=== PATIENT | male | born 1990 | race Caucasian/White ===

== ENCOUNTER 2018-06-01 00:08 | Emergency (ER) | payer BC ==
[2018-06-01 00:12] VITALS: BP 128/91
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
[2018-06-01] MEDS ORDERED: ACETAMINOPHEN 500 MG TAB PO ONE (00:37)
== END 2018-06-01 00:45 | disposition home or self-care (01) ==
PROC: 0HQ1XZZ Repair Face Skin, External Approach (ICD-10-PCS; principal; 2018-06-01)
DX: S01.81XA Laceration without foreign body of other part of head, initial encounter (principal); F10.920 Alcohol use, unspecified with intoxication, uncomplicated; F17.200 Nicotine dependence, unspecified, uncomplicated; W22.8XXA Striking against or struck by other objects, initial encounter; Y92.9 Unspecified place or not applicable; Y93.9 Activity, unspecified; Y99.9 Unspecified external cause status

== ENCOUNTER 2018-08-27 16:25 | Observation (INO) | payer BC, OTHER ==
--- NOTE | 2018-08-27 17:12 | EDPHY ---
H & P Time Seen by Provider: 08/27/18 17:11 HPI/ROS: CHIEF COMPLAINT: Nausea vomiting diarrhea HISTORY OF PRESENT ILLNESS: Patient went to go see the movie "[place] [employer]" last night at 5:30 p.m. And only about 30 min into the movie started having nausea so he left and has had nausea vomiting and diarrhea all night and then all day since then. Associated with cramping in his abdomen and some pain in the center of his chest below the sternum. Symptoms worse with oral intake, severe at this time. Associated with some dark vomit but no melena or red blood per rectum, no hematemesis. REVIEW OF SYSTEMS: Eye: no change in vision ENT: no sore throat Cardiac: no chest pain or syncope Pulmonary: no cough or SOB Abdomen: HPI Musculoskeletal: no back pain Skin: no rash Neuro: no headache Constitutional: no fever : no urinary symptoms A comprehensive 10 point review of systems is otherwise negative aside from elements mentioned in the history of present illness. PAST MEDICAL HISTORY: Right leg surgery for fracture when he lived in [place] Social history: Tobacco smoker, some alcohol. General Appearance: Alert and conversant, cooperative. Eyes: No scleral icterus. ENT, Mouth: Dry mucous membranes. Respiratory: Normal respiratory effort, breath sounds equal, lungs are clear to auscultation. Cardiovascular: Regular rate and rhythm. Gastrointestinal: Abdomen is soft and non tender. Negative McBurney's point tenderness, no Aceves sign, no rebound or guarding, normal male . Neurological: Alert, face symmetric, normal motor and sensory in extremities. Skin: Warm and dry, no rashes. Musculoskeletal: No peripheral edema. Psychiatric: Not agitated. Emergency Department course/MDM: Zofran 4 and Phenergan 12.5, normal saline hydration 2 L, labs to include CBC chemistry LFT and lipase. 1841: Labs reviewed including elevated WBC and acute kidney injury, discussed with patient admission for IV fluids, discussed with Dr. Brown. Likely severe gastroenteritis, I think that acute surgical abdominal process unlikely on clinical exam. Smoking Status: Current every day smoker Constitutional: Initial Vital Signs Temperature (C) 36.8 C 08/27/18 16:32 Heart Rate 136 H 08/27/18 16:32 Respiratory Rate 18 08/27/18 16:32 Blood Pressure 132/95 H 08/27/18 16:32 O2 Sat (%) 98 03/18/19 16:32 O2 Delivery Mode Room Air Allergies/Adverse Reactions: amoxicillin [Amoxicillin] Allergy (Severe, Verified 08/27/18 16:31) Hives Home Medications: Medication Instructions Recorded Acetaminophen [Tylenol ES 500 mg 500 - 1,000 mg PO DAILY PRN 08/27/18 (*)] Amphet Asp and D/Amphet [Adderall 20 mg PO DAILY@17 PRN 08/27/18 20 mg (*)] Dextroamphetamine/Amphetamine 60 mg PO DAILY PRN 08/27/18 [Adderall Xr 30 mg Capsule] Ibuprofen [Motrin (*)] 200 - 400 mg PO DAILY PRN 08/27/18 Medical Decision Making Differential Diagnosis: Differential considered including but not limited to gastroenteritis, food poisoning, metabolic abnormality, appendicitis, bowel obstruction. - Data Points Laboratory Results: Laboratory Results 08/27/18 17:50 08/27/18 17:50 08/27/18 08/27/18 17:50 17:50 WBC 27.59 10^3/uL H 10^3/uL (3.80-9.50) RBC 6.29 10^6/uL 10^6/uL (4.40-6.38) Hgb 19.8 g/dL H g/dL (13.7-17.5) Hct 54.6 % H % (40.0-51.0) MCV 86.8 fL fL (81.5-99.8) MCH 31.5 pg pg (27.9-34.1) MCHC 36.3 g/dL g/dL (32.4-36.7) RDW 12.2 % % (11.5-15.2) Plt Count 520 10^3/uL H 10^3/uL (150-400) MPV 10.2 fL fL (8.7-11.7) Neut % (Auto) 88.8 % H % (39.3-74.2) Lymph % (Auto) 3.0 % L % (15.0-45.0) Stokes % (Auto) 7.1 % % (4.5-13.0) Eos % (Auto) 0.0 % L % (0.6-7.6) Baso % (Auto) 0.3 % % (0.3-1.7) Nucleat RBC Rel Count 0.0 % % (0.0-0.2) Absolute Neuts (auto) 24.52 10^3/uL H 10^3/uL (1.70-6.50) Absolute Lymphs (auto) 0.83 10^3/uL L 10^3/uL (1.00-3.00) Absolute Monos (auto) 1.95 10^3/uL H 10^3/uL (0.30-0.80) Absolute Eos (auto) 0.00 10^3/uL L 10^3/uL (0.03-0.40) Absolute Basos (auto) 0.08 10^3/uL 10^3/uL (0.02-0.10) Absolute Nucleated RBC 0.00 10^3/uL 10^3/uL (0-0.01) Immature Gran % 0.8 % % (0.0-1.1) Immature Gran # 0.21 10^3/uL H 10^3/uL (0.00-0.10) RBC/WBC/PLT Morphology TNP Platelet Estimate TNP Sodium 133 mEq/L L mEq/L (135-145) Potassium 4.7 mEq/L mEq/L (3.5-5.2) Chloride 91 mEq/L L mEq/L (97-110) Carbon Dioxide 14 mEq/l L mEq/l (22-31) Anion Gap 28 mEq/L H mEq/L (6-14) BUN 37 mg/dL H mg/dL (7-23) Creatinine 1.9 mg/dL H mg/dL (0.7-1.3) Estimated GFR 42 Glucose 125 mg/dL H mg/dL (70-100) Calcium 11.1 mg/dL H mg/dL (8.5-10.4) Phosphorus 5.2 mg/dL H mg/dL (2.5-4.5) Total Bilirubin 1.6 mg/dL H mg/dL (0.1-1.4) Conjugated Bilirubin 0.5 mg/dL mg/dL (0.0-0.5) Unconjugated Bilirubin 1.1 mg/dL mg/dL (0.0-1.1) AST 60 IU/L H IU/L (17-59) ALT 50 IU/L IU/L (21-72) Alkaline Phosphatase 117 IU/L IU/L (38-126) Total Protein 9.9 g/dL H g/dL (6.3-8.2) Albumin 5.4 g/dL H g/dL (3.5-5.0) Lipase 523 IU/L H IU/L (23-300) Medications Given: Hydromorphone HCl (Dilaudid) 0.2 - 0.4 mg IVP Q4HRS PRN PRN Reason: Pain, Severe Unable to Take PO Stop: 09/06/18 19:20 Last Admin: 08/27/18 19:52 Dose: 0.4 mg Promethazine HCl (Phenergan) 6.25 - 12.5 mg IVP Q6HRS PRN PRN Reason: Nausea/Vomiting, Use 2nd Stop: 02/23/19 19:20 Last Admin: 08/27/18 19:53 Dose: 12.5 mg Discontinued Medications Sodium Chloride (Ns) 1,000 mls @ 0 mls/hr IV EDNOW ONE; Wide Open PRN Reason: Protocol Stop: 08/27/18 17:23 Last Admin: 08/27/18 17:45 Dose: 1,000 mls Sodium Chloride (Ns) 1,000 mls @ 0 mls/hr IV EDNOW ONE; Wide Open PRN Reason: Protocol Stop: 08/27/18 17:23 Last Admin: 08/27/18 17:45 Dose: 1,000 mls Sodium Chloride (Ns) 1,000 mls @ 0 mls/hr IV ONCE ONE PRN Reason: Wide Open Stop: 08/27/18 19:24 Last Admin: 08/27/18 19:51 Dose: 1,000 mls Ondansetron HCl (Zofran) 4 mg IVP EDNOW ONE Stop: 08/27/18 17:23 Last Admin: 08/27/18 17:45 Dose: 4 mg Promethazine HCl (Phenergan) 12.5 mg IVP EDNOW ONE Stop: 08/27/18 17:23 Last Admin: 08/27/18 17:45 Dose: 12.5 mg Departure - Departure Disposition: [facility] Clinical Impression: Nausea vomiting and diarrhea, Dehydration Condition: Good
[2018-08-27] MEDS ORDERED: ONDANSETRON 4 MG/2 ML VIAL IVP ONE (17:22)
[2018-08-27] MEDS ORDERED: NS 1,000 ML IV ONE ×3 (17:22→19:23)
[2018-08-27] MEDS ORDERED: PROMETHAZINE HCL 25 MG/ML INJ IVP ONE (17:22)
[2018-08-27 18:31] LABS: PLATELET COUNT 520 10^3/uL (150-400)
[2018-08-27] MEDS ORDERED: LORazepam 2 MG/ML INJ IVP PRN (19:21)
[2018-08-27] MEDS ORDERED: ACETAMINOPHEN 325 MG TAB PO PRN (19:21)
[2018-08-27] MEDS: HYDROmorphONE/DILAUDID 1 MG/ML INJ IVP PRN (19:52)
[2018-08-27] MEDS: PROMETHAZINE HCL 25 MG/ML INJ IVP PRN (19:53)
[2018-08-27] MEDS: NS 1,000 ML IV SCH (21:39)
[2018-08-27] MEDS: ONDANSETRON 4 MG/2 ML VIAL IVP PRN (21:39)
[2018-08-27] MEDS ORDERED: CALCIUM CARBONATE 500 MG CHEWABLE TAB PO PRN (22:18)
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
[2018-08-27] MEDS: PANTOPRAZOLE SODIUM 40 MG TAB PO SCH (22:33)
[2018-08-28] MEDS: HYDROmorphONE/DILAUDID 1 MG/ML INJ IVP PRN ×2 (04:11→21:17)
[2018-08-28] MEDS: ONDANSETRON 4 MG/2 ML VIAL IVP PRN (04:11)
[2018-08-28] MEDS: NS 1,000 ML IV SCH ×3 (04:12→16:56)
[2018-08-28 05:04] LABS: PLATELET COUNT 242 10^3/uL (150-400)
[2018-08-28] MEDS: PANTOPRAZOLE SODIUM 40 MG TAB PO SCH (08:25)
[2018-08-28] MEDS: ONDANSETRON DISINTEGRATING 4 MG TAB PO PRN ×2 (08:25→13:43)
[2018-08-28] MEDS: oxyCODONE IR 5 MG TAB PO PRN ×4 (08:25→21:19)
[2018-08-28] MEDS: PROMETHAZINE HCL 25 MG/ML INJ IVP PRN ×2 (10:44→21:20)
[2018-08-28] MEDS: MAG HYDROX/AL HYDROX/SIMETH 30 ML UDCUP PO PRN ×2 (13:44→23:54)
--- NOTE | 2018-08-28 15:15 | HOSPPROG ---
Hospitalist Progress Note Assessment/Plan: DIAGNOSES: * Acute gastroenteritis is likely cause of vomiting diarrhea and abdominal pain ; still awaiting PCR -would have some potential concern for a cocaine induced illness such as bowel ischemia, however this was not seen on CT scan of the abdomen and he is improving in terms of resolution of metabolic acidosis and renal insufficiency with simple hydration despite ongoing symptoms * Intractable vomiting unable to hydrate self * Cocaine abuse -I did not address this with the patient as he has a visitor at the bedside; he does not appear to be showing any signs of withdrawal PLANS: * Continue IV hydration, IV antiemetics, pain management * Follow clinically very closely for any signs of other non infectious cause see above; low threshold to repeat abdominal imaging or take other measures as needed * Await stool sample for PCR to check for offending organism * Will need to address cocaine issues with the patient when we have appropriate opportunity to do so Seen by me on hospitalist rounds as well as multidisciplinary rounds today SUBJECTIVE: Still significant diffuse crampy abdominal pain nausea vomiting requiring antiemetics and pain medicine No bowel movements so far today OBJECTIVE Vitals reviewed: Tachycardia much improved other vital signs stable without fever Product Marketing Intern, my review: Exam: alert oriented appears uncomfortable but not in distress skin warm dry color ok no jaundice, rash bleeding or bruising resps not labored lungs clear BSs heart regular abd diffusely tender, with some mild guarding but no rebound, otherwise soft nondistended, few bowel sounds present limbs warm, no edema iv site ok Lab data: CO2 and anion gap are now normal on Chem, and BUN creatinine notably improved White count now still elevated at 14,000 thousand, hemoglobin now in normal range with hydration Urine drug screen shows positive for cocaine Objective: Vital Signs Temp Pulse Resp BP Pulse Ox 36.5 C 78 13 117/61 93 08/28/18 10:35 08/28/18 10:35 08/28/18 10:35 08/28/18 10:35 08/28/18 10:35 Laboratory Results 08/28/18 04:00 08/28/18 04:00 08/27/18 08/28/18 08/29/18 06:59 06:59 06:59 Intake Total 4570 Output Total 300 Balance 4270 - Time Spent With Patient Time Spent with Patient: greater than 35 minutes Time Spent with Patient: Greater than 35 minutes spent on this patients care, greater than 50% of time spent counseling, educating, and coordinating care regarding the above mentioned plan. ICD10 Worksheet Patient Problems: Problems Problem Status Onset Dehydration Acute Nausea vomiting and diarrhea Acute
--- NOTE | 2018-08-28 15:19 | ASMTCMCOM ---
CM Note CM Note Notes: Pt is a 28 y/o man admitted for dehydration and SHI. Pt will most likely d/c independent when medically stable. No therapies ordered at this time. CM available for changes. Plan: Independent Date Signed: 08/28/2018 03:18 PM Electronically Signed By:ELÍAS Small
[2018-08-28] MEDS: HYDROCODONE/APAP 5/325 TAB PO PRN (23:55)
[2018-08-29] MEDS: ONDANSETRON 4 MG/2 ML VIAL IVP PRN ×3 (00:49→10:07)
[2018-08-29] MEDS: oxyCODONE IR 5 MG TAB PO PRN ×3 (00:50→10:07)
[2018-08-29] MEDS: HYDROmorphONE/DILAUDID 1 MG/ML INJ IVP PRN ×2 (00:52→04:46)
[2018-08-29] MEDS: NS 1,000 ML IV SCH ×2 (00:53→08:24)
[2018-08-29] MEDS: MAG HYDROX/AL HYDROX/SIMETH 30 ML UDCUP PO PRN (08:21)
[2018-08-29] MEDS: PANTOPRAZOLE SODIUM 40 MG TAB PO SCH (08:21)
[2018-08-29] MEDS: HYDROCODONE/APAP 5/325 TAB PO PRN (08:21)
[2018-08-29 16:08] VITALS: BP 118/76
--- NOTE | 2018-08-29 16:26 | PDDCSUM ---
Discharge Summary Discharge Summary: DISCHARGE DIAGNOSES: * Acute gastroenteritis * Dehydration * Metabolic acidosis * Intractable vomiting * Recent cocaine abuse PROCEDURES: CT scan abdomen pelvis without concerning clinical features HOSPITAL COURSE SUMMARY: This patient developed acute onset of nausea vomiting diarrhea with fever symptoms, no blood, some crampy abdominal discomfort. After having this for more than 24 hr she began to get very sore weak and tired. He was not adequately hydrating. He came into the ER and was treated there but was not able to achieve control of his nausea there. The patient was a brought admitted the hospital wears received IV fluids IV antiemetics and some pain management. He has not had actual bowel movements here that we could use to get a diagnostic studies we have not identified a particular organism. At this point the patient is improving significantly. With oral antiemetics he is able to hydrate adequately and is getting some solid food as well. He still having some cramping and nausea requiring medication. He stable for discharge to home at this point. There is no fever, no sepsis, his metabolic acidosis has resolved. Incidentally in the ER urine testing was done and he comes back with the result positive for cocaine. I did address with the. He states that this was a 1 time use and a recent event and he is not concerned about his use of this substance overall. I did discuss with him the potential for stroke, myocardial infarction, and other severe medical complications, particularly as he also takes amphetamine derivatives which are prescribed to him. PENDING TEST RESULTS: None MEDICATION CHANGES: Zofran prescribed as needed for nausea Hyoscyamine as needed for abdominal cramping FOLLOW-UP PLAN: With primary care in 1-2 weeks as needed Greater than 35 minutes bedside and care coordination time today
--- NOTE | 2018-08-29 16:36 | ASDISCHSUM ---
Discharge Information Plan Status:Home with No Needs Medically Cleared to Leave:08/29/2018 Discharge Date:08/29/2018 CM D/C Disposition:Home, Routine, Self-Care ADT D/C Disposition:Home, Routine, Self-Care Projected Discharge Date:08/29/2018 Transportation at D/C: Discharge Delay Reason: Follow-Up Date:08/29/2018 Discharge Slot: Final Diagnosis: Placement Information Patient Contact Information Contact Name:SARAH Relationship: Address:[id number] Work Phone: [facility] Phone: State/Zip Code:[place] [address] Email: Financial Information Financial Class:Self-Pay Primary Plan Desc:SP UNINSURED Primary Plan Number:[id number] Secondary Plan Desc: Secondary Plan Number: Assessment Information LACE LACE Length of stay for Answers: 1 day current admission Acuity / Level of Answers: No Care: Did the patient have an inpatient admission? # of Emergency department Answers: 1-2 visits in the last 6 months Score: 2 Date Signed: 08/29/2018 04:35 PM Electronically Signed By:Jamilah Fox RN [facility] Progress Note CM Note CM Note Notes: Pt is a 28 y/o man admitted for dehydration and SHI. Pt will most likely d/c independent when medically stable. No therapies ordered at this time. CM available for changes. Plan: Independent Date Signed: 08/28/2018 03:18 PM Electronically Signed By:ELÍAS Small Case Management Discharge Plan Note Case Management Discharge Discharge Order Complete? Answers: Yes Patient to Obtain Answers: Independently Medications Discharge Comments Notes: 08/29/2018 Case Management Note Pt to d/c independent with follow up as directed. Date Signed: 08/29/2018 04:35 PM Electronically Signed By:Jamilah Fox RN Intervention Information
[2018-08-29] MEDS ORDERED: SUCRALFATE 1 GM/10 ML UDCUP PO SCH (17:30)
[2018-08-29] MEDS ORDERED: PANTOPRAZOLE SODIUM 40 MG TAB PO SCH (21:00)
== END 2018-08-29 17:11 | disposition home or self-care (01) ==
LOC: F2W 20:55
PROVIDERS: ADMIT Internal Medicine; ATTEND Internal Medicine
DX: K52.9 Noninfective gastroenteritis and colitis, unspecified (principal); E86.0 Dehydration; E87.2 Acidosis; F14.90 Cocaine use, unspecified, uncomplicated; F17.210 Nicotine dependence, cigarettes, uncomplicated; D72.829 Elevated white blood cell count, unspecified; D47.3 Essential (hemorrhagic) thrombocythemia
CPT/HCPCS: 80307; 96374; G0378; G0480; J1170; J2060; J2405; J2550